=== PATIENT | male | born 2000 | race Two or more races ===

== ENCOUNTER 2021-04-26 20:58 | Inpatient (IN) | payer MEDICAID ==
[~2021-04-26] VITALS: Ht 165.1 cm; Wt 63.5 kg
--- NOTE | 2021-04-26 21:30 | NUR ---
PT BIBS C/O RIGHT GROIN PAIN X1DAY. PT A/OX4. TOLERATING R/A WELL WITH NO SOB.
--- NOTE | 2021-04-26 21:51 | NUR ---
URINE COLLECTED AND SENT TO LAB
[2021-04-26] MEDS ORDERED: TRAMADOL HCL 50 MG TABLET PO ONE (22:00)
[2021-04-26 22:06] LABS: BILIRUBIN,URINE NEGATIVE (NEGATIVE); COLOR,URINE YELLOW (YELLOW); LEUKOCYTE ESTERASE ,URINE NEGATIVE (NEGATIVE); NITRITE, URINE NEGATIVE (NEGATIVE); PROTEIN,URINE NEGATIVE (NEGATIVE); UGLUCOSE NEGATIVE (NEGATIVE); UROBILINOGEN,URINE 0.2 EU/dL (0.2)
[2021-04-26 22:07] LABS: BASOPHILS % (AUTO) 0.5 % (0.0-2.0); EOSINOPHILS % (AUTO) 2.6 % (0.0-6.0); HEMATOCRIT 46 % (39-51); HEMOGLOBIN 15.4 g/dL (13.5-17.5); LYMPHOCYTES # (AUTO) 2.3 K/uL (0.8-4.8); MEAN CORPUSCULAR HGB CONC 34 g/dl (31.0-36.0); MEAN CORPUSCULAR VOLUME 92 fL (80-96); MONOCYTES # (AUTO) 0.8 K/uL (0.1-1.30); MONOCYTES % (AUTO) 8.1 % (2.0-12.0); NEUTROPHILS # (AUTO) 6.6 K/uL (1.8-8.9); NEUTROPHILS % (AUTO) 65.8 % (43.0-81.0); PLATELET COUNT (AUTO) 253 K/uL (150-450); RED BLOOD CELL COUNT(AUTO) 4.94 MIL/uL (4.5-6.0)
[2021-04-26] MEDS ORDERED: TRAMADOL HCL 50 MG TABLET ONE (22:10)
[2021-04-26 22:33] LABS: ALBUMIN 4.1 g/dL (3.4-5.0); BILIRUBIN,TOTAL 0.4 mg/dL (0.2-1.0); CALCIUM, SERUM 8.6 mg/dL (8.5-10.1); POTASSIUM 3.3 mmol/L (3.5-5.1)
--- NOTE | 2021-04-26 22:37 | NUR ---
US TECH AT PT'S BEDSIDE
[2021-04-26] MEDS ORDERED: IV NS 0.9% 250 ML IV ONE (22:45)
[2021-04-26] MEDS ORDERED: IOHEXOL-300 100 ML VIAL IV ONE (22:45)
[2021-04-26] MEDS ORDERED: CT SWABBABLE VALVE TRANS SET 1 EA INFUS.SET MC ONE (22:45)
--- NOTE | 2021-04-26 23:13 | NUR ---
PATIENT OUT TO CT
[2021-04-26] MEDS ORDERED: IV NS 0.9% 1,000 ML BAG IV ONE (23:30)
--- NOTE | 2021-04-26 23:35 | NUR ---
BACK FROM CT
--- NOTE | 2021-04-26 23:36 | NUR ---
PATIENT BACK FROM CT
[2021-04-27] VITALS (8 sets, daily range): BP systolic 112–132; BP diastolic 63–86
--- NOTE | 2021-04-27 01:39 | NUR ---
covid swab collected and sent
--- NOTE | 2021-04-27 03:30 | NUR ---
PT ASLEEP RESTING COMFORTABLY V/S STABLE
--- NOTE | 2021-04-27 07:06 | NUR ---
PT AWAKE V/S STABLE, DENIES ANY PAIN AT THIS TIME. WAITING FOR ROOM TO BE ADMITTED
--- NOTE | 2021-04-27 07:35 | NUR ---
PT RESTING COMFORTABLY, EASY TO AROUSE. VSS.
--- NOTE | 2021-04-27 07:57 | NUR ---
CALLED NURSING SUP REGARDING PT BED
[2021-04-27] MEDS ORDERED: MAG HYDROX/AL HYDROX/SIMETH 30 ML UDC PO PRN (09:30)
[2021-04-27] MEDS ORDERED: ONDANSETRON HCL/PF 4 MG/2 ML VIAL IVP PRN (09:30)
[2021-04-27] MEDS ORDERED: Z GUARD REMEDY 2 OZ OINT TP PRN (09:30)
[2021-04-27] MEDS ORDERED: ACETAMINOPHEN 325 MG TABLET PO PRN (09:30)
[2021-04-27] MEDS ORDERED: ZOLPIDEM TARTRATE 5 MG TABLET PO PRN (09:30)
[2021-04-27] MEDS ORDERED: MORPHINE SULFATE INJ 2 MG/ML DISP.SYRIN IV PRN (09:30)
[2021-04-27] MEDS ORDERED: MAGNESIUM HYDROXIDE 30 ML UDC PO PRN (09:30)
--- NOTE | 2021-04-27 09:33 | NUR ---
PT RESTING COMFORTABLY, VSS
--- NOTE | 2021-04-27 10:59 | NUR ---
SURGEON AT BEDSIDE
--- NOTE | 2021-04-27 11:09 | NUR ---
PT SIGNED CONSENT FOR REPAIR OF RIGHT INGUINAL HERNIA.
[2021-04-27] MEDS ORDERED: ANESTHESIA TRAY IN PYXIS 1 EA TRAY MC ONE (12:53)
[2021-04-27] MEDS ORDERED: BACITRACIN ZINC OINT PACKET 1 EA PACKET TP ONE (12:54)
[2021-04-27] MEDS ORDERED: LIDOCAINE 1% INJ 50 ML MDV IJ ONE (12:54)
[2021-04-27] MEDS ORDERED: BUPIVACAINE MPF W/EPI 0.25% 30 ML VIAL ONE (12:54)
[2021-04-27] MEDS ORDERED: MIDAZOLAM HCL 2 MG/2ML VIAL ONE (12:59)
[2021-04-27] MEDS ORDERED: HYDROMORPHONE INJ 2 MG/ML DISP.SYRIN ONE (13:00)
[2021-04-27] MEDS ORDERED: FAMOTIDINE/PF INJ 20 MG/2 ML VIAL IV ONE (13:00)
[2021-04-27] MEDS ORDERED: FENTANYL PF 250MCG/5ML AMPUL ONE (13:00)
[2021-04-27] MEDS ORDERED: ROCURONIUM BROMIDE 50 MG/5 ML ONE (13:01)
--- NOTE | 2021-04-27 13:15 | NUR ---
PT TAKEN TO SURGERY
[2021-04-27] MEDS ORDERED: IV LR 1000 ML 1,000 ML IV PRN (15:30)
--- NOTE | 2021-04-27 16:30 | NUR ---
MS RN ADMITTING NOTES ADMITTED THIS 20 Y/O MALE PT FROM SURGERY @1600, TRANSPORTED VIA GURNEY ACCOMPANIED BY OR NURSE JESSE, S/P INCARCERATED RIGHT INGUINAL HERNIA REPAIR. PATIENT IS ALERT AND ORIENTED X4, AWAKE, T[place] SPEAKING. ON ROOM AIR TOLERATING WELL, NO SOB NOTED, DENIES ANY PAIN OR DISCOMFORT AT THIS TIME. PT ASKED TO USE URINAL TO VOID. BODY ASSESSMENT DONE, SKIN GENERALLY INTACT, NOTED SURGICAL INCISION ON RIGHT GROIN COVERED WITH CLEAN AND DRY DRESSING. ABDOMEN SOFT AND NON-TENDER, LUNGS CLEAR UPON AUSCULTATION. IV ACCESS ON LAC INTACT AND PATENT, LR @75ML/HOUR RUNNING. ORIENTED TO ROOM, SAFETY MEASURES IN PLACE. BED LOCKED AND IN LOWEST POSITION, SR UP X2, CALL LIGHT PLACED WITHIN EASY EACH. WILL CONTINUE TO MONITOR.
--- NOTE | 2021-04-27 18:59 | NUR ---
SILK TRIMMER CLOSING NOTES PT ON BED,ASLEEP, EASILY AROUSED. REMAINS ON ROOM AIR TOLERATING WELL, NO SOB NOTED, BREATHING EVEN AND UNLABORED. IV ACCESS ON LAC #18G INTACT AND PATENT, LR AT 75ML/HR RUNNING. NO C/O PAIN OR DISCOMFORT AT THIS TIME. INCISION SITE WITH CLEAN AND DRY DRESING ON RIGHT GROIN AREA. SAFETY MEASURES IN PLACE. BED LOCKED AND IN LOWEST POSITION, SR UP X2, CALL LIGHT PLACED WITHIN EASY REACH. WILL ENDORSE TO NEXT SHIFT.
--- NOTE | 2021-04-27 19:27 | NUR ---
MS RN OPENING PATIENT RECEIVED AWAKE IN BED. HE APPEARS TO BE IN A PLEASANT MOOD SAVE FOR THE S/P SURGERY. A/OX4. NO S/S OF DISTRESS, BREATHING SYMMETRICAL. NO PAIN REPORTED EXCEPT FOR SURGICAL SITE, BUT PATIENT IS DECLINING MEDS; WILL CONTINUE TO MONITOR PATIENT FOR PAIN MANAGEMENT. LAC #18 W/ LR @75 ML/HR. SAFETY MEASURES IN PLACE: BED AT LOWEST POSITION, RAILS UP X2, CALL [place] WITHIN REACH.
[2021-04-27] MEDS: ACETAMINOPHEN 325 MG TABLET PO SCH (20:12)
[2021-04-27] MEDS: GABAPENTIN 300 MG CAPSULE PO SCH (20:40)
[2021-04-27] MEDS: IBUPROFEN 400 MG TABLET PO SCH (20:40)
[2021-04-28] MEDS: IBUPROFEN 400 MG TABLET PO SCH ×2 (05:10→12:36)
[2021-04-28] MEDS: GABAPENTIN 300 MG CAPSULE PO SCH ×2 (05:11→12:36)
[2021-04-28] MEDS: ACETAMINOPHEN 325 MG TABLET PO SCH ×2 (05:11→12:36)
[2021-04-28 06:13] LABS: BASOPHILS % (AUTO) 0.3 % (0.0-2.0); EOSINOPHILS % (AUTO) 1.7 % (0.0-6.0); HEMATOCRIT 42 % (39-51); HEMOGLOBIN 14.1 g/dL (13.5-17.5); LYMPHOCYTES # (AUTO) 1.4 K/uL (0.8-4.8); LYMPHOCYTES % (AUTO) 9.8 % (20.0-44.0); MEAN CORPUSCULAR HGB CONC 34 g/dl (31.0-36.0); MEAN CORPUSCULAR VOLUME 91 fL (80-96); MONOCYTES # (AUTO) 0.5 K/uL (0.1-1.30); MONOCYTES % (AUTO) 3.5 % (2.0-12.0); NEUTROPHILS # (AUTO) 12.6 K/uL (1.8-8.9); NEUTROPHILS % (AUTO) 84.7 % (43.0-81.0); PLATELET COUNT (AUTO) 196 K/uL (150-450); RED BLOOD CELL COUNT(AUTO) 4.58 MIL/uL (4.5-6.0); WHITE BLOOD COUNT (AUTO) 14.9 K/uL (4.3-11.0)
--- NOTE | 2021-04-28 06:39 | NUR ---
MS RN CLOSING NOTE PATIENT ASLEEP IN BED. A/OX4. NO S/S OF DISTRESS, BREATHING SYMMETRICAL; LAC #18G PATENT. PAIN MANAGED BY ORDER. SAFETY MEASURES IN PLACE: BED AT LOWEST POSITION, RAILS UP X2, CALL [place] WITHIN REACH. WILL ENDORSE TO NEXT SHIFT FOR ODETTE.
[2021-04-28 06:53] LABS: CALCIUM, SERUM 8.4 mg/dL (8.5-10.1); CREATININE 0.9 mg/dL (0.6-1.3); MAGNESIUM 1.7 mg/dL (1.8-2.4); PHOSPHORUS 4.6 mg/dL (2.5-4.9); POTASSIUM 3.9 mmol/L (3.5-5.1)
--- NOTE | 2021-04-28 07:40 | NUR ---
MS RN OPENING NOTE PATIENT IN BED ASLEEP, EASY TO AROUSE. ALERT AND ORIENTED X 4 . ON ROOM AIR, TOLERATING WELL. BREATHING IS EVEN AND UNLABORED. IV ACCESS ON LAC#18 INTACT AND PATENT, WITH RUNNING LR AT 75CC/HR. NO C/O PAIN OR DISCOMFORT. NO S/SX ACUTE DISTRESS. SKIN WARM AND DRY TO TOUCH. INCISIONS IN RIGHT GROING ARE C/D/I. ALL SAFETY MEASURE IN PLACE. BOTH SIDE RAILS UP. BED IN LOW POSITION AND LOCKED. CALL LIGHT WITH IN REACH. WILL CONTINUE TO MONITOR THROUGHOUT SHIFT.
[2021-04-28] MEDS: Magnesium 1GM/D5W 100ML PREMIX 100 ML IV SCH ×2 (08:10→09:21)
--- NOTE | 2021-04-28 16:00 | NUR ---
MS FEATURE WRITER NOTES PT WAS DISCHARGED WITH STABLE VITAL SIGNS. NO S/SX OF ACUTE DISTRESS. NO C/O PAIN. DISCHARGE INSTRUCTIONS REVIEWED WITH PATIENT AND SIGNED. ALL QUESTIONS ANSWERED WITH JESSICA AGUILAR AT BEDSIDE TO TRANSLATE. IV ACCESS AND ID BAND REMOVED. PHOTOS TAKEN OF R GROIN INCISION SURGERY SITE. ALL BELONGINGS RETURNED AND ACCOUNT FOR. FORM SIGNED AND COPY FILED IN CHART. PT AWARE TO F/U WITH DR. BOATENG IN 1 WEEK. PT WAS PICKED UP VIA PRIVATE CAR BY BROTHERFRANCOIS. PT WAS ESCORTED OUT THE UNIT VIA WHEELCHAIR BY JESSICA AGUILAR.
== END 2021-04-28 16:21 | disposition home or self-care (01) | DRG 228 ==
LOC: ER 21:02 → TRANSITION 04-27 04:40 → MED 04-27 16:12
PROVIDERS: ADMIT Family Medicine; ATTEND Family Medicine
PROC: 0YQ50ZZ Repair Right Inguinal Region, Open Approach (ICD-10-PCS; principal; 2021-04-27)
PROC: 0JBC0ZZ Excision of Pelvic Region Subcutaneous Tissue and Fascia, Open Approach (ICD-10-PCS; 2021-04-27)
DX: K40.30 Unilateral inguinal hernia, with obstruction, without gangrene, not specified as recurrent (principal); D17.6 Benign lipomatous neoplasm of spermatic cord; Z20.822 Contact with and (suspected) exposure to COVID-19; R73.9 Hyperglycemia, unspecified; E83.42 Hypomagnesemia; D72.829 Elevated white blood cell count, unspecified; E87.6 Hypokalemia; N50.3 Cyst of epididymis
CPT/HCPCS: 36415; 71045-TC; 76870-TC; 80048-TC; 80053-TC; 80061-TC; 83605-TC; 83735-TC; 84100-TC; 85025-TC; 85730-TC; 87081-TC; 87491; 87591; C9803; G0378; J0690; J1170; J2250; J2270; J2405; J2704; J2765; J3010; J3475; J3490; J7030; J7050; J7120; Q9967

== ENCOUNTER 2022-12-10 09:35 | Emergency (ER) | payer MEDICAID ==
[~2022-12-10] VITALS: Ht 162.6 cm; Wt 62.6 kg
[2022-12-10 11:55] LABS: BASOPHILS % (AUTO) 0.6 % (0.0-2.0); EOSINOPHILS # (AUTO) 0.1 K/uL (0.0-0.7); EOSINOPHILS % (AUTO) 1.8 % (0.0-6.0); HEMATOCRIT 48 % (39-51); HEMOGLOBIN 16.1 g/dL (13.5-17.5); LYMPHOCYTES # (AUTO) 1.7 K/uL (0.8-4.8); LYMPHOCYTES % (AUTO) 27.6 % (20.0-44.0); MEAN CORPUSCULAR HEMOGLOBIN 31 PG (26.0-33.0); MEAN CORPUSCULAR HGB CONC 34 g/dl (31.0-36.0); MEAN CORPUSCULAR VOLUME 91 fL (80-96); MONOCYTES # (AUTO) 0.4 K/uL (0.1-1.30); MONOCYTES % (AUTO) 6.6 % (2.0-12.0); NEUTROPHILS # (AUTO) 3.9 K/uL (1.8-8.9); NEUTROPHILS % (AUTO) 63.4 % (43.0-81.0); PLATELET COUNT (AUTO) 252 K/uL (150-450); RED BLOOD CELL COUNT(AUTO) 5.29 MIL/uL (4.5-6.0); RED CELL DISTRIBUTION WIDTH 13.2 % (11.5-15.0); WHITE BLOOD COUNT (AUTO) 6.1 K/uL (4.3-11.0)
[2022-12-10 12:10] LABS: CALCIUM, SERUM 9.2 mg/dL (8.5-10.1); CREATININE 0.6 mg/dL (0.6-1.3); POTASSIUM 4.3 mmol/L (3.5-5.1)
[2022-12-10 12:17] LABS: ALBUMIN 4.2 g/dL (3.4-5.0); BILIRUBIN,DIRECT 0.1 mg/dL (0.0-0.2); BILIRUBIN,TOTAL 0.8 mg/dL (0.2-1.0); TOTAL PROTEIN, SERUM 7.5 g/dL (6.4-8.2)
[2022-12-10] MEDS ORDERED: KETOROLAC TROMETHAMINE INJ 60 MG/2 ML VIAL IM ONE (12:30)
[2022-12-10] MEDS ORDERED: KETOROLAC TROMETHAMINE INJ 30 MG/ML VIAL ONE (12:55)
[2022-12-10 15:10] VITALS: BP 125/77; TEMP 98.8; O2SAT 97
== END 2022-12-10 14:40 | disposition home or self-care (01) ==
LOC: ER 09:45
DX: K40.90 Unilateral inguinal hernia, without obstruction or gangrene, not specified as recurrent (principal); Z60.2 Problems related to living alone
CPT/HCPCS: 99285; 74176; 96372; 93005; 85025; 80048; 83690; 80076; 36415; J1885